=== PATIENT | female | born 1930 | race Caucasian/White ===

== ENCOUNTER 2017-02-18 10:40 | Outpatient (CLI) | payer MEDICARE | END 2017-02-18 23:59 | disposition home health service (06) | LOC: WOU 10:40 | PROVIDERS: ATTEND Podiatrist Foot & Ankle Surgery | DX: I87.2 Venous insufficiency (chronic) (peripheral) (principal); L97.821 Non-pressure chronic ulcer of other part of left lower leg limited to breakdown of skin; R60.0 Localized edema; L90.9 Atrophic disorder of skin, unspecified; L03.116 Cellulitis of left lower limb; L03.115 Cellulitis of right lower limb; Z79.01 Long term (current) use of anticoagulants; Z79.899 Other long term (current) drug therapy; Z88.4 Allergy status to anesthetic agent; Z88.0 Allergy status to penicillin; Z88.8 Allergy status to other drugs, medicaments and biological substances; Z87.891 Personal history of nicotine dependence; I48.91 Unspecified atrial fibrillation; I25.10 Atherosclerotic heart disease of native coronary artery without angina pectoris | CPT/HCPCS: A6253; A6402; G0463 ==

== ENCOUNTER 2017-02-20 13:00 | Outpatient (CLI) | payer MEDICARE | END 2017-02-20 23:59 | disposition home or self-care (01) | LOC: WOU 13:00 | PROVIDERS: ATTEND Podiatrist Foot & Ankle Surgery | DX: I87.2 Venous insufficiency (chronic) (peripheral) (principal); I70.222 Atherosclerosis of native arteries of extremities with rest pain, left leg; R60.0 Localized edema | CPT/HCPCS: 93925-TC; 93926-TC; 93971-TC ==

== ENCOUNTER 2017-02-25 11:00 | Outpatient (CLI) | payer MEDICARE | END 2017-02-25 23:59 | disposition home health service (06) | LOC: WOU 11:00 | PROVIDERS: ATTEND Podiatrist Foot & Ankle Surgery | DX: I87.332 Chronic venous hypertension (idiopathic) with ulcer and inflammation of left lower extremity (principal); L97.822 Non-pressure chronic ulcer of other part of left lower leg with fat layer exposed; L03.116 Cellulitis of left lower limb; L03.115 Cellulitis of right lower limb; L81.8 Other specified disorders of pigmentation | CPT/HCPCS: 11042; A6253; A6402 ==

== ENCOUNTER 2017-03-05 11:00 | Outpatient (CLI) | payer MEDICARE | END 2017-03-05 23:59 | disposition home health service (06) | LOC: WOU 11:00 | PROVIDERS: ATTEND Podiatrist Foot & Ankle Surgery | DX: I87.2 Venous insufficiency (chronic) (peripheral) (principal); L97.822 Non-pressure chronic ulcer of other part of left lower leg with fat layer exposed; L97.819 Non-pressure chronic ulcer of other part of right lower leg with unspecified severity; I89.0 Lymphedema, not elsewhere classified; I48.2 Chronic atrial fibrillation; Z79.01 Long term (current) use of anticoagulants; E66.9 Obesity, unspecified; Z68.36 Body mass index [BMI] 36.0-36.9, adult; Z71.3 Dietary counseling and surveillance; R60.0 Localized edema; L89.312 Pressure ulcer of right buttock, stage 2; H81.13 Benign paroxysmal vertigo, bilateral; Z88.4 Allergy status to anesthetic agent; Z88.0 Allergy status to penicillin | CPT/HCPCS: A6402; G0463 ==

== ENCOUNTER 2017-03-12 10:52 | Outpatient (CLI) | payer MEDICARE | END 2017-03-12 23:59 | disposition home or self-care (01) | LOC: WOU 10:52 | PROVIDERS: ATTEND Podiatrist Foot & Ankle Surgery | DX: I87.312 Chronic venous hypertension (idiopathic) with ulcer of left lower extremity (principal); L97.821 Non-pressure chronic ulcer of other part of left lower leg limited to breakdown of skin; I48.91 Unspecified atrial fibrillation; Z79.01 Long term (current) use of anticoagulants; L89.312 Pressure ulcer of right buttock, stage 2; H81.13 Benign paroxysmal vertigo, bilateral; Z88.4 Allergy status to anesthetic agent; Z88.0 Allergy status to penicillin; Z87.891 Personal history of nicotine dependence; I25.10 Atherosclerotic heart disease of native coronary artery without angina pectoris | CPT/HCPCS: 11042; A6402; G0463 ==

== ENCOUNTER 2017-03-18 10:45 | Outpatient (CLI) | payer MEDICARE | END 2017-03-18 23:59 | disposition home or self-care (01) | LOC: WOU 10:45 | PROVIDERS: ATTEND Podiatrist Foot & Ankle Surgery | DX: I83.892 Varicose veins of left lower extremity with other complications (principal); L90.9 Atrophic disorder of skin, unspecified; I48.91 Unspecified atrial fibrillation; Z79.01 Long term (current) use of anticoagulants | CPT/HCPCS: G0463 ==

== ENCOUNTER 2017-04-09 12:00 | Outpatient (CLI) | payer MEDICARE | END 2017-04-09 23:59 | disposition home or self-care (01) | LOC: WOU 12:00 | PROVIDERS: ATTEND Specialist | DX: L89.312 Pressure ulcer of right buttock, stage 2 (principal); H81.13 Benign paroxysmal vertigo, bilateral; I48.2 Chronic atrial fibrillation; Z87.891 Personal history of nicotine dependence; Z88.8 Allergy status to other drugs, medicaments and biological substances | CPT/HCPCS: A6402; G0463 ==

== ENCOUNTER 2017-04-22 12:50 | Outpatient (CLI) | payer MEDICARE | END 2017-04-22 23:59 | disposition home or self-care (01) | LOC: VASLAB 12:50 | PROVIDERS: ATTEND Surgery Vascular Surgery | DX: I87.8 Other specified disorders of veins (principal); I73.9 Peripheral vascular disease, unspecified; I48.91 Unspecified atrial fibrillation; Z79.01 Long term (current) use of anticoagulants | CPT/HCPCS: G0463 ==

== ENCOUNTER 2017-04-30 10:45 | Outpatient (CLI) | payer MEDICARE | END 2017-04-30 23:59 | disposition home health service (06) | LOC: WOU 10:45 | PROVIDERS: ATTEND Specialist | DX: L89.312 Pressure ulcer of right buttock, stage 2 (principal); L89.321 Pressure ulcer of left buttock, stage 1; I48.2 Chronic atrial fibrillation; H81.13 Benign paroxysmal vertigo, bilateral; Z79.01 Long term (current) use of anticoagulants | CPT/HCPCS: A6402; G0463 ==

== ENCOUNTER 2017-05-13 11:10 | Outpatient (CLI) | payer MEDICARE | END 2017-05-13 23:59 | disposition home health service (06) | LOC: WOU 11:10 | PROVIDERS: ATTEND Podiatrist Foot & Ankle Surgery | DX: I87.2 Venous insufficiency (chronic) (peripheral) (principal); L97.829 Non-pressure chronic ulcer of other part of left lower leg with unspecified severity; R60.0 Localized edema; L85.3 Xerosis cutis; S80.822A Blister (nonthermal), left lower leg, initial encounter; X58.XXXA Exposure to other specified factors, initial encounter; Y92.89 Other specified places as the place of occurrence of the external cause; I48.91 Unspecified atrial fibrillation; Z79.01 Long term (current) use of anticoagulants | CPT/HCPCS: A6402; G0463 ==

== ENCOUNTER 2017-05-19 12:00 | Outpatient (CLI) | payer MEDICARE | END 2017-05-19 23:59 | disposition home health service (06) | LOC: WOU 12:00 | PROVIDERS: ATTEND Surgery | DX: L89.322 Pressure ulcer of left buttock, stage 2 (principal); L89.312 Pressure ulcer of right buttock, stage 2; I48.2 Chronic atrial fibrillation; I25.10 Atherosclerotic heart disease of native coronary artery without angina pectoris; Z87.891 Personal history of nicotine dependence; Z79.01 Long term (current) use of anticoagulants; E66.9 Obesity, unspecified; Z68.37 Body mass index [BMI] 37.0-37.9, adult; Z71.3 Dietary counseling and surveillance | CPT/HCPCS: A6402; G0463 ==

== ENCOUNTER 2017-05-26 10:25 | Outpatient (CLI) | payer MEDICARE | END 2017-05-26 23:59 | disposition home health service (06) | LOC: WOU 10:25 | PROVIDERS: ATTEND Surgery | DX: L89.312 Pressure ulcer of right buttock, stage 2 (principal); H81.13 Benign paroxysmal vertigo, bilateral; I48.2 Chronic atrial fibrillation; L03.319 Cellulitis of trunk, unspecified; E66.9 Obesity, unspecified; Z68.37 Body mass index [BMI] 37.0-37.9, adult; Z71.3 Dietary counseling and surveillance; Z87.891 Personal history of nicotine dependence | CPT/HCPCS: G0463 ==

== ENCOUNTER 2017-06-02 11:00 | Outpatient (CLI) | payer MEDICARE | END 2017-06-02 23:59 | disposition home health service (06) | LOC: WOU 11:00 | PROVIDERS: ATTEND Podiatrist Foot & Ankle Surgery | DX: L89.312 Pressure ulcer of right buttock, stage 2 (principal); H81.13 Benign paroxysmal vertigo, bilateral; I48.2 Chronic atrial fibrillation; Z79.01 Long term (current) use of anticoagulants; E66.9 Obesity, unspecified; Z68.37 Body mass index [BMI] 37.0-37.9, adult; L98.9 Disorder of the skin and subcutaneous tissue, unspecified; L03.319 Cellulitis of trunk, unspecified | CPT/HCPCS: A6402; G0463 ==

== ENCOUNTER 2017-06-04 10:55 | Outpatient (CLI) | payer MEDICARE | END 2017-06-04 23:59 | disposition home health service (06) | LOC: WOU 10:55 | PROVIDERS: ATTEND Podiatrist Foot & Ankle Surgery | DX: I87.2 Venous insufficiency (chronic) (peripheral) (principal); L97.818 Non-pressure chronic ulcer of other part of right lower leg with other specified severity; R60.0 Localized edema; L03.116 Cellulitis of left lower limb; L98.8 Other specified disorders of the skin and subcutaneous tissue; I48.91 Unspecified atrial fibrillation; Z79.01 Long term (current) use of anticoagulants; Z88.0 Allergy status to penicillin | CPT/HCPCS: 11042; A6402 ==

== ENCOUNTER 2017-06-11 10:45 | Outpatient (CLI) | payer MEDICARE | END 2017-06-11 23:59 | disposition home health service (06) | LOC: WOU 10:45 | PROVIDERS: ATTEND Podiatrist Foot & Ankle Surgery | DX: I87.2 Venous insufficiency (chronic) (peripheral) (principal); L97.812 Non-pressure chronic ulcer of other part of right lower leg with fat layer exposed; I48.91 Unspecified atrial fibrillation; Z79.01 Long term (current) use of anticoagulants; R60.0 Localized edema; B35.1 Tinea unguium; L60.3 Nail dystrophy | CPT/HCPCS: 11042; A6402 ==

== ENCOUNTER 2017-06-12 10:40 | Outpatient (CLI) | payer MEDICARE | END 2017-06-12 23:59 | disposition home health service (06) | LOC: WOU 10:40 | PROVIDERS: ATTEND Surgery | DX: L89.312 Pressure ulcer of right buttock, stage 2 (principal); I48.2 Chronic atrial fibrillation; Z79.01 Long term (current) use of anticoagulants; E66.9 Obesity, unspecified; Z68.37 Body mass index [BMI] 37.0-37.9, adult; Z71.3 Dietary counseling and surveillance; R42 Dizziness and giddiness | CPT/HCPCS: A6402 ×2; G0463 ==

== ENCOUNTER 2018-11-10 05:57 | Emergency (ER) | payer MEDICARE ==
[~2018-11-10] VITALS: Ht 170.2 cm; Wt 84.8 kg
--- NOTE | 2018-11-10 06:05 | NUR ---
BIBRA. C/O NON STOP NOSE BLEEDING FROM L NOSTRIL. PT ON COUMADIN FOR A FIB. PLACED ON A MONITOR. WILL CONT TO MONITOR ,
[2018-11-10] MEDS ORDERED: SILVER NITRATE APPLICATOR 1 EA BOX ONE (06:19)
[2018-11-10] MEDS ORDERED: PHENYLEPHRINE 0.5% NASAL SPRAY 15 ML BOTTLE NS ONE ×2 (06:24→06:30)
[2018-11-10 06:36] LABS: BASOPHILS % (AUTO) 0.3 % (0.0-2.0); EOSINOPHILS % (AUTO) 0.1 % (0.0-6.0); HEMATOCRIT 41 % (33-45); HEMOGLOBIN 13.3 g/dL (11.5-14.8); LYMPHOCYTES # (AUTO) 0.9 /CMM (0.8-4.8); LYMPHOCYTES % (AUTO) 8.4 % (20.0-44.0); MEAN CORPUSCULAR HGB CONC 32 g/dl (31.0-36.0); MEAN CORPUSCULAR VOLUME 87 fL (82-100); MONOCYTES # (AUTO) 0.4 /CMM (0.1-1.30); NEUTROPHILS # (AUTO) 8.9 /CMM (1.8-8.9); NEUTROPHILS % (AUTO) 87.2 % (43.0-81.0); PLATELET COUNT (AUTO) 198 /CMM (150-450); RED BLOOD CELL COUNT(AUTO) 4.74 MIL/uL (4.0-5.2); WHITE BLOOD COUNT (AUTO) 10.2 K/uL (4.3-11.0)
[2018-11-10 06:42] LABS: CALCIUM, SERUM 9.9 mg/dL (8.5-10.1); CARBON DIOXIDE 25 mmol/L (21-32); CHLORIDE 108 mmol/L (98-107); CREATININE 1.6 mg/dL (0.6-1.3); GLUCOSE 177 mg/dL (74-106); SODIUM SERUM 144 mmol/L (136-145); UREA NITROGEN, BLOOD 33 mg/dL (7-18)
[2018-11-10] MEDS: PHENYLEPHRINE 1% NASAL SPRAY 15 ML BOTTLE NS PRN ×2 (07:05→08:04)
--- NOTE | 2018-11-10 07:15 | NUR ---
at bedside, attempting to stop the bleeding from left nostril.
[2018-11-10] MEDS ORDERED: hydrALAZINE HCL IV 20 MG VIAL ONE (07:23)
[2018-11-10] MEDS ORDERED: TRANEXAMIC ACID 1,000 MG/10 ML VIAL IR ONE (07:30)
--- NOTE | 2018-11-10 07:50 | NUR ---
LEFT NOSTRIL PACKED WITH RAPID RHINO WITH TXA BY MD, APPEARS TO HAVE STOPPED THE BLEEDING AT THIS TIME. VS STABLE, BP IMPROVED.
[2018-11-10] MEDS ORDERED: hydrALAZINE HCL IV 20 MG VIAL IV ONE (08:00)
[2018-11-10 08:31] VITALS: BP 150/70
--- NOTE | 2018-11-10 09:39 | NUR ---
PATIENT'S NOSEBLEEDING STOPPED, VITALS STABLE. NO DSITRESS NOTED. BP IMPROVED. DENIES HEADACHE OR DIZZINESS. NEEDS ATTENDED. CAREGIVER AT BEDSIDE. IV removed. Catheter intact and site benign. Pressure and 4x4 applied to site. No bleeding noted. Patient discharged to home in stable condition via wheelchair. Written and verbal after care instructions given. Patient verbalizes understanding of instruction.
== END 2018-11-10 09:55 | disposition home or self-care (01) ==
LOC: ER 05:59
DX: R04.0 Epistaxis (principal); R79.1 Abnormal coagulation profile; I10 Essential (primary) hypertension; I48.91 Unspecified atrial fibrillation; R00.0 Tachycardia, unspecified; Z88.4 Allergy status to anesthetic agent
CPT/HCPCS: 36415; 80048; 85025; 85730; 93005 ×2; 96374; 99284; A4217; A6403; J0360

== ENCOUNTER 2018-11-10 12:23 | Emergency (ER) | payer MEDICARE ==
[~2018-11-10] VITALS: Ht 170.2 cm; Wt 84.8 kg
[2018-11-10 12:54] VITALS: BP 161/84
== END 2018-11-10 13:24 | disposition home or self-care (01) ==
LOC: ER 12:26
DX: R04.0 Epistaxis (principal); I48.91 Unspecified atrial fibrillation; Z88.4 Allergy status to anesthetic agent